=== PATIENT | female | born 1995 | race Caucasian/White ===

== ENCOUNTER → 2025-02-18 17:17 | Outpatient (REF) | payer OTHER, SELFPAY | LOC: RAD 17:17 | PROVIDERS: ATTENDING PHYSICIAN Obstetrics & Gynecology Obstetrics | DX: N93.9 Abnormal uterine and vaginal bleeding, unspecified (principal) | CPT/HCPCS: 76830; 76856 ==

== ENCOUNTER 2025-06-18 08:19 | Emergency (ER) | payer OTHER, SELFPAY ==
[2025-06-18] VITALS (8 sets, daily range): BP systolic 104–144; BP diastolic 69–100; BMI 24.3
--- NOTE | 2025-06-18 09:01 | ED.GENMED ---
History of Present Illness
General
Chief Complaint: Abdominal Pain
Source: patient
Exam Limitations: none
Time Seen by Provider: 06/18/25 08:32
Nursing documentation reviewed up to this point in time: agreed with
History of Present Illness
History of Present Illness:
Patient recently diagnosed with SIBO, started on multiple medications 2 days ago, presents to ED secondary to worsening abdominal pain associated with vomiting episode since last night. Patient who has had ongoing abdominal pain with diarrhea for a
number of years, states that her symptoms, specifically her pain with vomiting, is worse than what she has felt in the past. Patient was diagnosed with SIBO by 'functional medicine' physician via a number of outpatient blood work and breathalyzer
test. Denies family history of IBD. Patient reports having had her gallbladder removed in 2017, when she in fact was experiencing similar symptoms. Since surgery, her abdominal symptoms have somewhat persisted. Denies loss of appetite. Denies
weight loss. Denies fever or chills. Abdominal pain described as crampy, started on upper abdomen last night, but is located in her lower abdomen today. Denies back pain. Denies difficulty with urination. Denies recent change in diet. Patient
currently works as a teacher.
Past History
Past History
ED Past Medical History: None
ED Past Surgical History: None
Social History
Tobacco: Non-smoker
Review of Systems
Review of Systems
Allergies reviewed?: Yes
All Other Systems: ROS reviewed and negative except as documented in HPI and ROS
Constitutional: Reports no symptoms; Denies fever or chills
Respiratory: Reports no symptoms
Cardiac: Reports no symptoms
ABD/GI: Reports abdominal pain, nausea, vomiting and diarrhea
Musculoskeletal: Reports no symptoms
Skin: Reports no symptoms
Neurological: Reports no symptoms
Phy Exam
Physical Exam
Physical Exam:
Physical Exam
General: mild distress, not acutely ill. afebrile
Head: nc/at. eomi
Neck: supple. normal range of motion
Abdomen: normal bowel sounds. no distention. no focal tenderness noted to palpation
Neuro: alert and oriented x 3. no focal neurological deficits
Skin: no rash
Psychiatric: well kept. interactive and cooperative
Extremities: no edema. no calf tenderness.
Course
Orders/Labs/Results
Orders:
Orders
06/18/25 08:34
IV Insert/Care/Rem.- Treatment PRN
06/18/25 08:55
Test Result ONCE
06/18/25 08:56
Ketorolac [Toradol] 15 mg IV NOW STA
Pantoprazole [Protonix IV] 40 mg IV NOW STA
06/18/25 08:57
0.9% Sodium Chloride 500 ml [Nss] 500 ml IV BOLUS
06/18/25 09:00
Complete Blood Count/With Diff Urgent
Comprehensive Metabolic Panel Urgent
HCG, Serum Qualitative Screen Urgent
Lipase Urgent
Manual Differential Urgent
Urinalysis Reflex To Culture Urgent
Date Specimen was Collected: 06/18/25
Time Specimen was Collected: 08:59
Urine Microscopic Reflex Cult Urgent
06/18/25 09:19
Iohexol [Omnipaque] See Protocol PO NOW STA
06/18/25 09:20
CT Abd/pel W Iv And Oral Contr Urgent
Comment:
Reason For Exam: lower abd pain
Abnormal Lab Results
06/18/25
09:00
MCH 32.2 H pg
(27.0-31.0)
Eosinophils (Manual) 24 H %
(0-6)
Calcium 10.4 H mg/dl
(8.4-10.2)
Urine Ketones 1+ A
(Negative)
Ur Occult Blood Reflex 3+ A
(Negative)
Urine Bacteria (Reflex) Few A
(Negative)
Urine Albumin (Reflex) 2+ A
(Neg - Trace)
06/18/25 09:00
06/18/25 09:00
Vital Signs
Initial and Last Documented VS:
Initial Vital Signs
Temp Pulse Resp BP Pulse Ox
98.1 F 77 16 143/100 98
06/18/25 08:21 06/18/25 08:21 06/18/25 08:21 06/18/25 08:21 06/18/25 08:21
Last Documented Vital Signs
Temp Pulse Resp BP Pulse Ox
98.1 F 78 16 112/73 99
06/18/25 08:21 06/18/25 14:55 06/18/25 14:55 06/18/25 14:00 06/18/25 11:30
MDM/Problems Addressed
MDM/Problems Addressed:
Patient with an unremarkable workup in ED, including blood work and CT abdomen pelvis. CT abdomen pelvis report reviewed and discussed with patient.
An appointment made for the patient to be evaluated at GI office on 07/14/[address] Brady. Until then, recommended diet modification, i.e. bland diet, along with PPI, and discussion with her physician about discontinuation of neomycin
and Xifaxin, as they may be contributing to her symptoms. Return precautions provided, i.e. fever/worsening pain/vomiting.
*Pulse Oximetry
SaO2: 98
Oxygen Mode of Delivery: Room air
Patient hypoxic: no
*Critical Care Note
Total Time (30-74mins, 75-104mins- exclusive of procedures): Not Applicable
ED Attending Note
-
Portions of this chart may have been created with voice recognition software.� Occasional wrong word or��sound alike� substitutions may have occurred due to the inherent limitations of voice recognition software.
Discharge Plan
Departure
Patient Disposition: Home (Routine Discharge)
Date of Disposition: 06/18/25
Time of Disposition: 14:23
Patient with high blood pressure during this ER visit?: Yes
Discharge Problem:
Abdominal pain
Instructions: Abdominal Pain
Prescriptions:
No Action
fluoxetine 10 MG capsule
50 mg PO DAILY
norgestimate-ethinyl estradiol [Tri Femynor] 1 EACH tablet
1 ea PO DAILY
hydroxyzine HCl 10 MG tablet
30 mg PO HS
lisdexamfetamine [Vyvanse] 60 MG capsule
60 mg PO DAILY
valacyclovir 500 MG tablet
500 mg PO BID Qty: 14 0RF
prednisone 10 MG tablets,dose pack
10 mg PO Daily Qty: 1 0RF
Rx Instructions:
50mg x 2 days, 40mg x 2 days, 30mg x 2 days, 20mg x 2 days, 10mg x 2 days
Referrals:
NONE,* [Family Provider, Internal Medicine]
Sadie Brady, [Active, Gastroenterology]
Stand Alone Forms: Return to Work
Activity Restrictions/Additional Instructions:
As discussed, please follow-up with referred hot plate press operator on 07/14/2025 at 4 PM for an outpatient consultation. Please call the office to confirm your appointment.
Interventions
Interventions:
*Risk Screen - Suicide Last Done: 06/18/25 08:57
*General Assessment Last Done: 06/18/25 08:57
*Neglect/Abuse Screening Last Done: 06/18/25 08:57
*ED- Fall Risk Assessment Last Done: 06/18/25 08:57
*ED COVID-19 Vaccine History Last Done: 06/18/25 08:57
*Nursing Disposition Last Done: 06/18/25 14:55
[facility]-[id number] Assessment Last Done: 06/18/25 08:39
Discharge Date and Time
Discharge Date/Time: 06/18/25 14:50
Print Language: GUYANESE
[2025-06-18] MEDS: NSS 500 IV (09:04)
[2025-06-18] MEDS: TORADOL 15 MG IV (09:10)
[2025-06-18] MEDS: PROTONIX IV 40 MG IV (09:10)
[2025-06-18 09:23] LABS: Hematocrit 42.9 % (37.0-47.0); Hemoglobin 15.0 g/dL (12.0-16.0); Mean Corp Hgb Conc. 35.0 g/dL (33.0-37.0); Mean Corpuscular Volume 92.1 fL (81.0-99.0); Platelet Count 239 10^3/uL (130-400); Red Cell Dist. Width 11.9 % (11.5-14.5)
[2025-06-18] MEDS: OMNIPAQUE 50 ML PO (09:25)
[2025-06-18 09:33] LABS: HCG, Serum Qualitative Screen Negative
[2025-06-18 09:42] LABS: ALT (SGPT) 23 U/L (0-35); AST (SGOT) 24 U/L (14-36); Albumin 4.9 g/dl (3.5-5.0); Alkaline Phosphatase 64 U/L (38-126); Blood Urea Nitrogen 11 mg/dl (7-17); Calcium 10.4 mg/dl (8.4-10.2); Carbon Dioxide 23 mmol/L (22-30); Chloride 107 mmol/L (98-107); Estimated Creatinine Clearance 81 ml/min; Glucose 93 mg/dl (70-99); Lipase 91 U/L (23-300); Potassium 4.1 mmol/L (3.5-5.1); Sodium 137 mmol/L (135-145); Total Protein 7.7 g/dl (6.3-8.2); eGFR > 60.00
[2025-06-18 09:45] LABS: Urine Character Clear (Clear)
[2025-06-18 10:12] LABS: Absolute Neutrophils -Man Diff 4.6 10^3/uL (1.4-6.5); Platelets Checked Yes; Total Cells Counted 100
[2025-06-18 10:13] LABS: Normal RBC Morphology Yes
[2025-06-18 10:59] LABS: Urine Squamous Cell >30 /LPF (Few)
[2025-06-18 11:00] LABS: Urine Red Blood Cell 0-2 /HPF (0-2); Urine White Cell 0-2 /HPF (0-5)
--- NOTE | 2025-06-18 14:55 | EDRN ---
Reviewed discharge instructions with patient. Verbalized understanding. Ambulated with steady gait to the lobby.
== END 2025-06-18 14:50 | disposition home or self-care (01) ==
LOC: EMR 08:19
PROVIDERS: EMERGENCY PHYSICIAN Emergency Medicine
DX: R10.9 Unspecified abdominal pain (principal); R03.0 Elevated blood-pressure reading, without diagnosis of hypertension; K63.8219 Small intestinal bacterial overgrowth, unspecified; Z90.49 Acquired absence of other specified parts of digestive tract
CPT/HCPCS: 99284; 96374; 96375; 96361; 74177; 80053; 81003; 81015; 83690; 84703; 85025; Q9967

== ENCOUNTER → 2025-09-02 16:21 | Outpatient (REF) | payer OTHER, SELFPAY | LOC: RAD 16:21 | PROVIDERS: ATTENDING PHYSICIAN Internal Medicine | DX: R19.8 Other specified symptoms and signs involving the digestive system and abdomen (principal) | CPT/HCPCS: 74019 ==